=== PATIENT | male | born 1960 | race Caucasian/White ===

== ENCOUNTER 2016-11-08 09:51 | Emergency (ER) | payer SELFPAY ==
[2016-11-08 10:46] LABS: BASOPHILS 1.1 % (0.0-2.0); EOSINOPHILS 13.7 % (0-7); HEMATOCRIT 32.3 % (42.0-54.0); HEMOGLOBIN 10.7 g/dL (13.5-17.5); LYMPHOCYTES 18.1 % (15-50); MCH 29.2 pg (26.0-34.0); MCHC 33.1 g/dL (31.0-37.0); MEAN PLATELET VOLUME 9.1 fL (7.4-10.4); MONOCYTES 14.4 % (2-11); NEUTROPHILS 52.7 % (40-80); PLATELET COUNT 247 10x3/uL (130-400); RBC 3.67 10x6/uL (4.20-6.10); RDW 24.3 % (11.5-14.5); WBC 5.3 10x3/uL (4.8-10.8)
[2016-11-08 11:05] LABS: ALBUMIN 4.7 g/dL (3.4-5.0); ALKALINE PHOSPHATASE 80 U/L (46-116); ALT (SGPT) 116 U/L (10-68); BILIRUBIN - TOTAL 0.58 mg/dL (0.2-1.3); CALC OSMOLALITY 258 mosm/kg (275-300); CALCIUM 8.6 mg/dL (8.5-10.1); CARBON DIOXIDE 29.6 mmol/L (21.0-32.0); CHLORIDE - SERUM 92 mmol/L (98-107); CREATININE - SERUM 0.7 mg/dL (0.6-1.3); GLUCOSE 96 mg/dL (74-106); POTASSIUM - SERUM 3.9 mmol/L (3.5-5.1); PROTEIN - SERUM 8.4 g/dL (6.4-8.2); SODIUM 130 mmol/L (136-145); UREA NITROGEN 6 mg/dL (7-18); eGFR NON AFRICAN AMERICAN > 90 mL/min (90-120)
[2016-11-08 11:49] LABS: INR 4.33 (0.85-1.17); PROTIME 42.1 SECONDS (11.6-15.0)
[2016-11-08 11:50] LABS: APTT 61.1 SECONDS (22.8-39.4)
== END 2016-11-08 13:18 | disposition home or self-care (01) ==
LOC: D.ER 09:51
PROVIDERS: Emergency Medicine
DX: K92.2 Gastrointestinal hemorrhage, unspecified (principal); I10 Essential (primary) hypertension; Z79.01 Long term (current) use of anticoagulants; L42 Pityriasis rosea; Z91.14 Patient's other noncompliance with medication regimen; Z95.2 Presence of prosthetic heart valve; E87.1 Hypo-osmolality and hyponatremia

== ENCOUNTER 2017-07-29 16:30 | Inpatient (IN) | payer OTHER ==
[~2017-07-29] VITALS: Ht 175.3 cm; Wt 69.1 kg
--- NOTE | 2017-07-29 17:01 | NUR ---
SPOKE WITH DR. MCELROY CONCERNING CONSULT.
[2017-07-29] MEDS ORDERED: COUMADIN5 MG PO (17:10)
[2017-07-29] MEDS ORDERED: VALIUM10 MG PO (17:10)
[2017-07-29] MEDS ORDERED: COUMADIN7.5 MG PO (17:12)
[2017-07-29] MEDS ORDERED: ULTRAM50 MG PO (17:13)
[2017-07-29] MEDS ORDERED: XALATAN 0.0052.5 ML EACH EYE (17:13)
[2017-07-29] MEDS ORDERED: LOPRESSOR25 MG PO (17:15)
[2017-07-29] MEDS ORDERED: PROTONIX40 MG PO (17:15)
[2017-07-29] MEDS ORDERED: PRINIVIL20 MG PO (17:16)
[2017-07-29] MEDS ORDERED: FERROUS SULFAT325 MG PO (17:17)
[2017-07-29 17:18] LABS: HEMATOCRIT 26.6 % (42.0-54.0); HEMOGLOBIN 8.3 g/dL (13.5-17.5)
[2017-07-29] MEDS ORDERED: THEREMS-M1 TAB PO (17:22)
[2017-07-29] MEDS ORDERED: BAYER CHEWABLE81 MG PO (17:22)
[2017-07-29] MEDS ORDERED: NORVASC10 MG PO (17:22)
[2017-07-29 17:31] VITALS: BP 176/85; Ht 175.3 cm; Wt 69.1 kg
--- NOTE | 2017-07-29 18:45 | NUR ---
1640-RECIEVED VIA AMBULANCE-TO CV6-R IV SALINE LOCKED-PLACED TO MONITOR SR -DR MARQUES NOTIFIED OF ADMIT-ORDERS RECIEVED AND NOTED-PROTONIX GTT AT 8MG/H STARTED ORDERED-DR BENÍTEZ NOTIFIED OF CONSULT AND RETURNED [facility] 3057-DR BENÍTEZ AT [facility]- 1815-AMBULATING IN
[2017-07-29 19:00] VITALS: BP 157/89
--- NOTE | 2017-07-29 19:15 | NUR ---
SHIFT ASSESSMENT COMPLETED. SEE ASSESSMENT FLOWSHEET. WANTING TO KNOW HOW TO USE THE WIFI HERE. RT FA PIV W/ PROTONIX GTT @ 8MG/HR INFUSING WITHOUT ISSUES. REPORTS PAIN TO ABDOMEN, NECK AND BACK. ASKING ABOUT ULTRAM. WILL MONITOR.
[2017-07-29 20:00] VITALS: BP 152/86
--- NOTE | 2017-07-29 20:15 | NUR ---
PRN PAIN MED GIVEN FOR STOMACH AND NECK/BACK PAINS. TRAMADOL GIVEN-HOME MED. WILL MONITOR.
--- NOTE | 2017-07-29 20:15 | NUR ---
WARM BLANKET GIVEN FOR NOW UNTIL ENGINEERING CAN ADJUST ROOM TEMP HIGHER. SONG WRITER MADE AWARE OF NEED. WILL MONITOR.
--- NOTE | 2017-07-29 20:30 | NUR ---
ENGINEERING CALLED TO SEE WHAT TEMP NEEDS TO BE SET AT. WILL MONITOR.
[2017-07-29 21:00] VITALS: BP 156/84
[2017-07-29 22:00] VITALS: BP 119/62
--- NOTE | 2017-07-29 22:20 | NUR ---
EYES CLOSED. NO ACUTE DISTRESS NOTED. WILL MONITOR.
[2017-07-29 23:00] VITALS: BP 105/66
[2017-07-30] VITALS (19 sets, daily range): BP systolic 97–139; BP diastolic 61–90
--- NOTE | 2017-07-30 00:20 | NUR ---
AWOKEN FOR REASSESSMENT. NO NEW ACUTE CHANGES NOTED. REPORTS STOMACH IS FEELING BETTER. TEMP. ASSESSED AND 98.6 ORALLY. DENIES PAIN OR NEEDS. WILL MONITOR.
--- NOTE | 2017-07-30 01:14 | NUR ---
NEW BAG OF IV PROTONIX HUNG. EYES CLOSED. NO ACUTE DISTRESS NOTED. WILL MONITOR.
[2017-07-30 02:27] LABS: BASOPHILS 0.5 % (0-2); EOSINOPHILS 6.8 % (0-7); HEMATOCRIT 24.8 % (42.0-54.0); HEMOGLOBIN 7.7 g/dL (13.5-17.5); IMMATURE GRANULOCYTES 0.2 % (0-5); LYMPHOCYTES 26.7 % (15-50); MCH 25.6 pg (26.0-34.0); MCV 82.4 fL (80.0-100.0); MEAN PLATELET VOLUME 8.5 fL (7.4-10.4); MONOCYTES 16.5 % (2-11); NEUTROPHILS 49.3 % (40-80); PLATELET COUNT 293 10x3/uL (130-400); RBC 3.01 10x6/uL (4.20-6.10); RDW 20.3 % (11.5-14.5); WBC 4.4 10x3/uL (4.8-10.8)
[2017-07-30 02:39] LABS: APTT 44.5 SECONDS (22.8-39.4); INR 2.11 (0.85-1.17); PROTIME 23.7 SECONDS (11.6-15.0)
[2017-07-30 02:42] LABS: % SATURATION 3 % (15-55); IRON 15 ug/dl (35-150); TOTAL IRON BIND CAPACITY 393 ug/dl (260-445); UNSAT IRON BIND CAPACITY 378 ug/dl (150-375)
--- NOTE | 2017-07-30 02:44 | NUR ---
BACK TO BED FROM BATHROOM. REPORTS ONLY URINATING. DENIES PAIN OR NEEDS. RECONNECTED TO MONITORING DEVICES. WILL MONITOR.
[2017-07-30 02:55] LABS: CALC OSMOLALITY 263 mosm/kg (275-300); CALCIUM 8.5 mg/dL (8.5-10.1); CHLORIDE - SERUM 96 mmol/L (98-107); CREATININE - SERUM 0.6 mg/dL (0.6-1.3); FERRITIN 20 ng/mL (3-244); GLUCOSE 91 mg/dL (74-106); POTASSIUM - SERUM 3.7 mmol/L (3.5-5.1); SODIUM 132 mmol/L (136-145); UREA NITROGEN 11 mg/dL (7-18); eGFR NON AFRICAN AMERICAN > 90 mL/min (90-120)
--- NOTE | 2017-07-30 03:10 | NUR ---
DR. MCELROY MADE AWARE OF CURRENT H & H, AND COAG RESULTS. NEW ORDERS TO TRANSFUSE ONE UNIT OF PACKED RED BLOOD CELLS AND MAY HAVE A REGULAR DIET.
--- NOTE | 2017-07-30 03:50 | NUR ---
BLOOD TRANSFUSION CONSENT SIGNED BY PATIENT AFTER INFORMING OF NEED FOR 1 UNIT OF PACKED RED BLOOD CELLS. INFORMED LAB OF NEED FOR TYPE AND CROSS-SPOKE WITH SOCORRO.
--- NOTE | 2017-07-30 04:45 | NUR ---
GENEVA BRAVO AT BEDSIDE FOR TYPE AND CROSSMATCH AND BANDING ARM. EXPLAINED ANOTHER IV SITE IS NEEDED. IV TO LEFT WRIST 22G SUCCESSFUL AFTER 2 TOTAL ATTEMPTS. BLOOD DRAWN FOR TYPE AND CROSSMATCH. SALINE LOCKED NEW IV AT THIS TIME. METAL COLORED WATCH REMOVED BY PATIENT AND ON BEDSIDE TABLE. WILL MONITOR.
[2017-07-30 16:22] LABS: HEMATOCRIT 28.7 % (42.0-54.0); HEMOGLOBIN 9.2 g/dL (13.5-17.5)
--- NOTE | 2017-07-30 19:30 | NUR ---
REPORT RECIEVED. ASSESSMENT COMPLETED. SEE FLOW SHEET FOR DETAILS. TALKED WITH PT ABOUT BEING NPO PAST MIDNIGHT UNDERSTOOD. POSITIONED FOR COMFORT, WILL CONTINUE TO MONITOR.
--- NOTE | 2017-07-30 21:00 | NUR ---
HS MEDS VERFIED WITH MAR AND GIVEN. PT POSITONED FOR COMFORT WILL CONTINUE TO MONITOR.
[2017-07-30 22:55] LABS: HEMATOCRIT 27.8 % (42.0-54.0); HEMOGLOBIN 8.8 g/dL (13.5-17.5)
--- NOTE | 2017-07-30 23:00 | NUR ---
REASSESSMENT COMPLETED. NO ACUTE CHANGES. SEE FLOW SHEET FOR FURTHER DETAILS. PT POSITIONED FOR COMFORT WILL CONTINUE TO MONITOR PT.
[2017-07-31] VITALS (22 sets, daily range): BP systolic 91–158; BP diastolic 57–93
--- NOTE | 2017-07-31 01:00 | NUR ---
PT RESTING WITH NO SIGNS OF DISTRESS. WILL CONTINUE TO MONITOR.
--- NOTE | 2017-07-31 03:00 | NUR ---
REASSESSMENT COMPLETED AT THIS TIME. NO ACUTE CHANGES. SEE FLOW SHEET FOR FURTHER DETAILS. WILL CONTINUE TO MONITOR PT.
--- NOTE | 2017-07-31 05:00 | NUR ---
PT RESTING WITH NO SIGNS OF DISTRESS. WILL CONTINUE TO MONITOR.
[2017-07-31 05:17] LABS: HEMATOCRIT 27.6 % (42.0-54.0); HEMOGLOBIN 8.8 g/dL (13.5-17.5); MCH 27.2 pg (26.0-34.0); MCHC 31.9 g/dL (31.0-37.0); MEAN PLATELET VOLUME 9.3 fL (7.4-10.4); RBC 3.24 10x6/uL (4.20-6.10); RDW 19.9 % (11.5-14.5); WBC 4.6 10x3/uL (4.8-10.8)
[2017-07-31 05:19] LABS: MCV 85.2 fL (80.0-100.0)
[2017-07-31 05:24] LABS: INR 1.71 (0.85-1.17)
[2017-07-31 05:28] LABS: CALC OSMOLALITY 263 mosm/kg (275-300); CALCIUM 8.1 mg/dL (8.5-10.1); CARBON DIOXIDE 25.1 mmol/L (21.0-32.0); CHLORIDE - SERUM 97 mmol/L (98-107); CREATININE - SERUM 0.6 mg/dL (0.6-1.3); GLUCOSE 91 mg/dL (74-106); POTASSIUM - SERUM 3.5 mmol/L (3.5-5.1); SODIUM 133 mmol/L (136-145); eGFR NON AFRICAN AMERICAN > 90 mL/min (90-120)
[2017-07-31 05:44] LABS: UREA NITROGEN 6 mg/dL (7-18)
--- NOTE | 2017-07-31 09:58 | NUR ---
* Is the patient Alert and Oriented? Yes 0 * How many steps to enter\exit or inside your home? 3 0 * PCP Dr. Starr 0 * Pharmacy Tra on [address] 0 * Preadmission Environment Home with Family 0 * ADLs Independent 0 * Equipment Cane 0 * List name and contact numbers for known caregivers / representatives who currently or will assist patient after discharge: Son in law - Gonzalo Huang [phone] Brother - Branden Aaron [phone] 0 * Additional services required to return to the preadmission environment? No 0 * Can the patient safely return to the preadmission environment? Yes 0 * Has this patient been hospitalized within the prior 30 days at any hospital? No Patient Name: YOU AARON Admission Status: Elective Accout number: [id number] Admission Date: 07-29-2017 : 1960 Attending: FRANSICO MARQUES Current LOS: 2 Planned Disposition: Home Primary Insurance: [employer]ICA[employer] Discharge Planning Comments: CM met with patient to assess dc plans/needs. Patient states he lives with his daughter & son in law. He reports he is independent with all ADL's. He has a cane he uses PRN when his gout flares up. At dc, he plans to return home with his family. No needs identified or verbalized at this time. CM will follow & assist as needed. Cable Way Operator: Bessy Moulton
--- NOTE | 2017-07-31 11:09 | NUR ---
PATIENT UP TO BEDSIDE TO BATHE, PATIENT IS TOLERATING SITTING UP WELL. CALL LIGHT WITHIN REACH, BED IN LOW POSITION.
--- NOTE | 2017-07-31 16:33 | NUR ---
DR. STREETER HERE FINISHED EGD ON PATIENT, AND NEW ORDERS RECEIVED.
--- NOTE | 2017-07-31 16:39 | NUR ---
EGD WITH TIVA COMPLETED AT BEDSIDE IN CVICU.
--- NOTE | 2017-07-31 18:09 | NUR ---
REPORT CALLED TO [facility] PATIENT WILL BE GOING TO ROOM 2222.
--- NOTE | 2017-07-31 18:45 | NUR ---
PT TAKEN BY WHEELCHAIR TO 2222. ALL BELONGINGS WITH PT PER PT REPORT. NO S/S OF DISTRESS NOTED. PT PLACED BACK ON NS AT 75CC/HR TO LEFT WRIST PIV.
--- NOTE | 2017-07-31 18:50 | NUR ---
RECIEVED TO ROOM 2222 FROM ICU VIA . RESTING QUIETLY IN BED. DENIES ANY NEEDS AT THIS TIME.
--- NOTE | 2017-07-31 20:00 | NUR ---
ASSESSMENT PER FLOWSHEET. IV PATENT LEFT WRIST OF NS AT 75CC'S/HR SITE CLEAR. PT GETS UP AD MATTHIEU TO BR VOIDS FREELY.
--- NOTE | 2017-07-31 20:15 | NUR ---
C/O PAIN ALL OVER INCLUDING ABDOMEN. RATES PAIN LEVEL #5. ULTRAM 50 MG PO GIVEN FOR PAIN CONTROL.
--- NOTE | 2017-07-31 21:30 | NUR ---
MEDS GIVEN PER NOV. WAS NOTIFIED BY RT TECH FROM CVICU THAT BED BUGS WERE FOUND IN PT'S PREVIOUS BED THAT EVS WAS CLEANING. NOTIFIED ACCOUNTING ADVISORY SERVICES MANAGER TAMIA YOON AND PLACED PT IN CONTACT ISOLATION.
--- NOTE | 2017-08-01 | NUR ---
EYES CLOSED RESPIRATIONS WITH EASE AND UNLABORED.
--- NOTE | 2017-08-01 02:00 | NUR ---
RESTING QUIETLY DENIES NEEDS.
--- NOTE | 2017-08-01 04:53 | NUR ---
EYES CLOSED RESPIRATIONS WITH EASE AND UNLABORED.
[2017-08-01 06:13] LABS: BASOPHILS 0.5 % (0-2); EOSINOPHILS 6.8 % (0-7); HEMATOCRIT 28.2 % (42.0-54.0); HEMOGLOBIN 8.9 g/dL (13.5-17.5); IMMATURE GRANULOCYTES 0.3 % (0-5); LYMPHOCYTES 23.7 % (15-50); MCH 27.1 pg (26.0-34.0); MCHC 31.6 g/dL (31.0-37.0); MCV 85.7 fL (80.0-100.0); MEAN PLATELET VOLUME 9.1 fL (7.4-10.4); NEUTROPHILS 53.7 % (40-80); PLATELET COUNT 267 10x3/uL (130-400); RBC 3.29 10x6/uL (4.20-6.10); RDW 19.7 % (11.5-14.5); WBC 3.8 10x3/uL (4.8-10.8)
[2017-08-01 06:19] LABS: INR 1.49 (0.85-1.17); PROTIME 17.9 SECONDS (11.6-15.0)
[2017-08-01 06:48] LABS: ALBUMIN 3.5 g/dL (3.4-5.0); ALKALINE PHOSPHATASE 72 U/L (46-116); ALT (SGPT) 58 U/L (10-68); BILIRUBIN - TOTAL 0.67 mg/dL (0.2-1.3); CALC OSMOLALITY 266 mosm/kg (275-300); CALCIUM 8.1 mg/dL (8.5-10.1); CARBON DIOXIDE 26.2 mmol/L (21.0-32.0); CHLORIDE - SERUM 101 mmol/L (98-107); CREATININE - SERUM 0.5 mg/dL (0.6-1.3); GLUCOSE 92 mg/dL (74-106); POTASSIUM - SERUM 3.4 mmol/L (3.5-5.1); PROTEIN - SERUM 7.1 g/dL (6.4-8.2); SODIUM 135 mmol/L (136-145); UREA NITROGEN 5 mg/dL (7-18); eGFR NON AFRICAN AMERICAN > 90 mL/min (90-120)
--- NOTE | 2017-08-01 07:30 | NUR ---
ASSESSMENT COMPLETE. IV TO L WRIST PATENT. NS INFUSING AT 75 CC/HR VIA PUMP. NPO FOR CTA TODAY. PATIENT STATES HE HAS NEVER HAD BUG BITES. NO BUG BITES NOTED AFTER ASSESSING SKIN. DENIES ANY NEEDS AT THIS TIME.
--- NOTE | 2017-08-01 07:40 | NUR ---
20 GUAGE SITED TO L FA X 2 ATTEMPTS FOR CTA TODAY.
[2017-08-01 08:40] VITALS: BP 149/79
--- NOTE | 2017-08-01 11:00 | NUR ---
NO CHANGES NOTED AT THIS TIME.
[2017-08-01 12:45] VITALS: BP 148/79
--- NOTE | 2017-08-01 14:00 | NUR ---
UP AD MATTHIEU IN ROOM. DENIES ANY NEEDS AT THIS TIME.
--- NOTE | 2017-08-01 18:30 | NUR ---
NO CHANGES NOTED AT PRESENT.
[2017-08-01 19:30] VITALS: BP 142/78
--- NOTE | 2017-08-01 21:35 | NUR ---
PATIENT RESTING IN BED AND DENIES NEEDS AT THIS TIME. ADMINISTERED MEDS PER ORDERS. COMPLETED ASSESSMENT. BED IN LOWEST POSITION AND CALL LIGHT WITHIN REACH. ENCOURAGED THE PATIENT TO CALL IF HE HAS NEEDS.
[2017-08-01 23:30] VITALS: BP 135/78
[2017-08-02 04:59] VITALS: BP 139/76
[2017-08-02 06:08] LABS: BASOPHILS 0.7 % (0-2); EOSINOPHILS 6.5 % (0-7); HEMATOCRIT 28.1 % (42.0-54.0); HEMOGLOBIN 8.8 g/dL (13.5-17.5); IMMATURE GRANULOCYTES 0.2 % (0-5); LYMPHOCYTES 19.5 % (15-50); MCHC 31.3 g/dL (31.0-37.0); MCV 86.2 fL (80.0-100.0); MEAN PLATELET VOLUME 9.6 fL (7.4-10.4); MONOCYTES 15.5 % (2-11); NEUTROPHILS 57.6 % (40-80); PLATELET COUNT 273 10x3/uL (130-400); RBC 3.26 10x6/uL (4.20-6.10); RDW 19.5 % (11.5-14.5); WBC 4.3 10x3/uL (4.8-10.8)
[2017-08-02 06:20] LABS: INR 1.46 (0.85-1.17); PROTIME 17.7 SECONDS (11.6-15.0)
[2017-08-02 06:32] LABS: CALC OSMOLALITY 261 mosm/kg (275-300); CALCIUM 8.2 mg/dL (8.5-10.1); CARBON DIOXIDE 25.9 mmol/L (21.0-32.0); CHLORIDE - SERUM 99 mmol/L (98-107); CREATININE - SERUM 0.6 mg/dL (0.6-1.3); GLUCOSE 92 mg/dL (74-106); POTASSIUM - SERUM 3.5 mmol/L (3.5-5.1); SODIUM 132 mmol/L (136-145); UREA NITROGEN 4 mg/dL (7-18); eGFR NON AFRICAN AMERICAN > 90 mL/min (90-120)
--- NOTE | 2017-08-02 08:30 | NUR ---
ASSESSMENT COMPLETED PER FLOW SHEET. IV PATENT. PATIENT DENIES ANY NEEDS AT THIS TIME. WILL CONTINUE TO MONITOR.
[2017-08-02 12:09] VITALS: BP 141/84
[2017-08-02 16:16] VITALS: BP 136/74
--- NOTE | 2017-08-02 20:00 | NUR ---
ASSESSMSENT PER FLOWHEET. IV PATENT LEFT WRIST OF NS AT 75CC'S/HR. SALINE LOCK PATENT LEFT FOREARM SITES X2 CLEAR. SR UP X2 CALL LIGHT WITHIN REACH DENIES NEEDS.
--- NOTE | 2017-08-02 21:15 | NUR ---
MEDS GIVEN PER MAR.
[2017-08-02 21:51] VITALS: BP 142/85
[2017-08-02 23:45] VITALS: BP 134/71
--- NOTE | 2017-08-03 01:00 | NUR ---
EYES CLOSED RESPIRATIONS WITH EASE AND UNLABORED.
[2017-08-03 04:00] VITALS: BP 133/80
[2017-08-03 05:44] LABS: BASOPHILS 0.8 % (0-2); EOSINOPHILS 6.5 % (0-7); HEMOGLOBIN 8.5 g/dL (13.5-17.5); IMMATURE GRANULOCYTES 0.3 % (0-5); LYMPHOCYTES 31.7 % (15-50); MCH 26.7 pg (26.0-34.0); MCHC 31.5 g/dL (31.0-37.0); MCV 84.9 fL (80.0-100.0); MONOCYTES 19.4 % (2-11); NEUTROPHILS 41.3 % (40-80); PLATELET COUNT 281 10x3/uL (130-400); RBC 3.18 10x6/uL (4.20-6.10); RDW 19.6 % (11.5-14.5); WBC 3.8 10x3/uL (4.8-10.8)
[2017-08-03 05:57] LABS: INR 1.5 (0.85-1.17); PROTIME 17.6 SECONDS (11.6-15.0)
[2017-08-03 06:09] LABS: ALBUMIN 3.4 g/dL (3.4-5.0); ALKALINE PHOSPHATASE 70 U/L (46-116); ALT (SGPT) 56 U/L (10-68); BILIRUBIN - TOTAL 0.35 mg/dL (0.2-1.3); CALC OSMOLALITY 265 mosm/kg (275-300); CALCIUM 8.3 mg/dL (8.5-10.1); CARBON DIOXIDE 25.4 mmol/L (21.0-32.0); CHLORIDE - SERUM 100 mmol/L (98-107); CREATININE - SERUM 0.6 mg/dL (0.6-1.3); GLUCOSE 91 mg/dL (74-106); POTASSIUM - SERUM 3.2 mmol/L (3.5-5.1); PROTEIN - SERUM 7.2 g/dL (6.4-8.2); SODIUM 134 mmol/L (136-145); eGFR NON AFRICAN AMERICAN > 90 mL/min (90-120)
[2017-08-03 06:15] LABS: UREA NITROGEN 6 mg/dL (7-18)
--- NOTE | 2017-08-03 06:35 | NUR ---
P+ LEVEL=3.2. K DUR 40MEQ PO GIVEN PER E. PROTOCAL.
--- NOTE | 2017-08-03 08:28 | NUR ---
PT AOX4 RESP EVEN AND NONLABORED PT DENIES NEEDS AT THIS TIME IV TO LEFT WRIST PATENT AND INTACT AT THIS TIME SRX2 BED AT LOWEST SETTING CALL LIGHT WITHIN REACH WILL CONTINUE TO MONITOR
[2017-08-03 08:37] VITALS: BP 144/83
--- NOTE | 2017-08-03 09:54 | NUR ---
CM REASSESSMENT NOTE: PATIENT IS DISCHARGING HOME TODAY/DRIVING HIMSELF/ DENIED NEEDS FOR HOME HEALTH / STATED HE HAD NO OTHER NEEDS FOR DISCHARGE. CM EXPLAINED TO NURSE PATIENT WAS DRIVING HIMSELF HOME.
--- NOTE | 2017-08-03 11:36 | NUR ---
IV X2 DISCONTINUED WITH CATHETER INTACT AT THIS TIME PT GIVEN DISCHARGE INSTRUCTIONS AT THIS TIME TAKEN TAKEN VIA WHEELCHAIR VIA PRIVATE VEHICLE AT THIS TIME
== END 2017-08-03 11:38 | disposition home or self-care (01) | DRG 379 ==
LOC: D.MS 16:30 → D.CVICU 16:30 → D.MS 07-31 18:29
PROVIDERS: Internal Medicine Gastroenterology; ADMIT Family Medicine
PROC: 0DJ08ZZ Inspection of Upper Intestinal Tract, Via Natural or Artificial Opening Endoscopic (ICD-10-PCS; principal; 2017-07-31 15:00)
DX: K92.1 Melena (principal); K57.90 Diverticulosis of intestine, part unspecified, without perforation or abscess without bleeding; D50.9 Iron deficiency anemia, unspecified; K29.90 Gastroduodenitis, unspecified, without bleeding; K44.9 Diaphragmatic hernia without obstruction or gangrene; K29.70 Gastritis, unspecified, without bleeding; D18.03 Hemangioma of intra-abdominal structures; Z95.2 Presence of prosthetic heart valve; Z79.01 Long term (current) use of anticoagulants; I10 Essential (primary) hypertension

== ENCOUNTER 2017-10-06 13:36 | Inpatient (IN) | payer OTHER ==
[~2017-10-06] VITALS: Ht 175.3 cm; Wt 77.1 kg
--- NOTE | ~2017-10-06 | HP ---
PATIENT: YOU AARON MEDICAL RECORD: [id number] ACCOUNT: [id number] LOCATION:D.[facility] : [birth year] ADMISSION DATE: 10/06/17 HISTORY AND PHYSICAL EXAMINATION REASON FOR ADMISSION: Rectal bleeding and mild abdominal pain. HISTORY OF PRESENT ILLNESS: The patient is a 57-year-old male, patient of Dr. Gilbert Harry and Dr. Sarika Webster. He has history of diverticulosis and diverticular bleed in 07/21/2017. He was on Coumadin because of a prosthetic aortic valve. He had an EGD at that time that showed some gastritis, but no obvious other source of bleeding. The patient said for that last 3 days he has had some dark stools that are fairly loose and somewhat bright red blood. He had some vague abdominal pain, not severe, not fever. He delayed coming into the hospital, he did not want to come in, but came today because of increasing symptoms and feeling fatigued. He denies any vomiting, but did have some nausea. Denies fever. PAST MEDICAL HISTORY: Aortic stenosis, aortic valve replacement, prosthetic type; history of GI bleed times 2 in the past; history of liver hemangioma; gout; hyperlipidemia; essential hypertension; glaucoma; anemia; gastrointestinal blood loss. PAST SURGICAL HISTORY: He states he has had an appendectomy in the past, aortic valve replacement. FAMILY HISTORY: Mother of Alzheimer's dementia. Father of coronary artery disease at age 80. SOCIAL HISTORY: Nonsmoker, nondrinker. Does have an occasional beer. MEDICATIONS: Coumadin 5 mg daily, except 7.5 mg on Monday and ; amlodipine 10 mg daily; Valium 10 mg b.i.d. p.r.n. anxiety; Lisinopril 10 mg b.i.d.; Feosol 1 daily; Latanoprost eyedrops 1 drop both eyes daily; multivitamins 1 daily; Protonix 40 mg daily; tramadol p.r.n. pain. ALLERGIES: None mentioned. REVIEW OF SYSTEMS: GENERAL: He has been fatigued for the last 24 hours. Denies fever. HEENT: No recent new visual change, sinus congestion, or sore throat. RESPIRATORY: No SOB, cough or hemoptysis. CARDIAC: No chest pain or palpitations. GASTROINTESTINAL: He has had nausea with some vomiting. He has had dark stools as mentioned for the last 3 days, some bright red blood has been noted as well. ENDOCRINE: Denies polyuria, polydipsia, heat or cold intolerance. NEUROLOGIC: Denies headache, visual changes or seizures, or memory loss. PSYCHIATRIC: Denies depressed mood. GENITOURINARY: Nocturia once nightly. INTEGUMENT: No rash, itching, petechiae or easy bruisability. PHYSICAL EXAMINATION: VITAL SIGNS: Temperature is 98.1 Fahrenheit orally, pulse 80 and regular, respirations are 20, blood pressure 152/90 with a sat 99% on room air. HEENT: Head is normocephalic. Eyes are clear with pinpoint pupils. HISTORY AND PHYSICAL [id number] GALEN[place] Conjunctiva is pink. NECK: No bruits or masses. CHEST: Clear without wheeze or rales. HEART: Regular rate with a mechanical aortic valve murmur noted. ABDOMEN: Soft, minimally tender perianal, likely has had a small umbilical hernia. Bowel sounds are hyperactive. RECTAL: Heme-positive stool that is black. EXTREMITIES: No CC&E. NEUROLOGICAL: Oriented to person, place, and time. Cranial nerves grossly intact. Gait was not tested. LABORATORY AND DIAGNOSTIC DATA: Hemoglobin was 10.5. Abdominal series shows lots of air throughout the colon, but no evidence of obstruction [place]. [place] [address], H&H is 10.6 and 31.1, platelets 169,000, neutrophils are 86.8, lymphocytes 6700. His INR is 2.76. Sodium is low at 124. BUN and creatinine are 24 and 0.8, potassium 4.6, glucose 108. Urinalysis unremarkable except for trace glucose. ASSESSMENT: 1. Rectal bleeding, possibly diverticular. 2. Coagulopathy from Coumadin therapy for aortic valve replacement. 3. Anemia, minimally symptomatic. 4. Essential hypertension. 5. Aortic valve replacement for aortic stenosis. 6. History of gastritis. 7. Glaucoma. 8. Umbilical hernia, asymptomatic. 9. Anxiety. PLAN: The patient will be admitted, holding Coumadin at this time. Transfuse if indicated. GI consult with Dr. Pineda. Empiric antibiotics, IV currently. TRANSINT:[id number] Voice Confirmation ID: [id number] DOCUMENT ID: [id number] RICHARD SILVERMAN MD at 2129 CC: [id number] DICTATION DATE: 10/06/171823 ENGINE ASSEMBLER: 10/06/172118 ADM IN [place] [id number] [place] [id number]
--- NOTE | ~2017-10-06 | HEMODYNAMI ---
PATIENT:YOU AARON MEDICAL RECORD: [id number] : 58 LOCATION:D.MS [facility].2212 ADMISSION DATE: 10/06/17 Generatedon:10/10/201710:00 Patient name: YOU AARON Patient #: [id number] SSN: : 1960 Date of study: 10/10/2017 Page: Of Hemodynamic Procedure Report Patient Data Patient Demographics Procedure consent was obtained First Name: YOU Gender: Male Last Name: GALEN : 1960 Middle Initial: REENA Age: 57 year(s) Patient #: [id number] Race: Unknown Additional ID: [id number] Contact details [address]: [address] [place] [address] [place] State: [place] City: [place] Zip code: [address] Admission Admission Data Admission Date: 10/06/2017 Admission Time: 19:30 Room #: D.2212 Procedure Procedure Types Cath Procedure Peripheral Cath Diagnostic Procedure Abd/Extremity Visceral/Mesenteric Mesenteric Arteriogram (Abd Artery) Procedure Description Procedure Date Procedure Date: 10/10/2017 Procedure Start Time: 9:18 Procedure Staff Name Function David Byrd MD Performing Physician Keenan Power RT Monitor Piedad Barajas RT Scrub Shine Rousseau RN Nurse Procedure Data Cath Procedure Fluoroscopy Diagnostic fluoroscopy Total fluoroscopy Time: 4.6 time: 4.6 min min Diagnostic fluoroscopy Total fluoroscopy dose: 642 dose: 642 mGy mGy Contrast Material Contrast Material Type Amount (ml) Isovue 300 75 Entry Location Entry Primary Successful Side Size Upsize Upsize Entry Closure Succes sful Closure Location (Fr) 1 (Fr) 2 (Fr) Remarks Device Remarks Femoral Right 5 Fr Exoseal artery Diagnostic catheters Device Type Used For End Catheter Placement Cook CHG-B 5FR 65CM Visceral catheter ([id number]) arteriography without flush-selective Angiodynamics SOS OMNI 2 Visceral NON B 5FR 65CM catheter arteriography ([id number]) without flush-selective Procedure Medications Medication Administration Route Dosage Lidocaine 1% added to field Heparin Flush Bag added to field 2 bags (1000units/500ml NS) Heparin Flush Bag added to field 1 bags (1000units/500ml NS) Versed I.V. 1 mg Fentanyl I.V. 50 mcg Versed I.V. 1 mg Fentanyl I.V. 50 mcg Hemodynamics Rest Heart Rate: 68 (bpm) Snapshots Pre Cath Intra NCS Post Cath Vital Signs Time Heart Resp SPO2 etCO2 NIBP (mmHg) Rhythm Pain Sedation Rate (ipm) (%) (mmHg) Status Level (bpm) 9:00:58 66 16 97 30.2 161/84(134) NSR 0 (11) 10(A) , No pain 9:05:16 68 16 96 30.2 156/86(132) NSR 0 (11) 10(A) , No pain 9:09:30 68 15 96 30.9 151/88(132) NSR 0 (11) 10(A) , No pain 9:13:42 69 15 96 30.9 157/89(133) NSR 0 (11) 10(A) , No pain 9:17:56 70 16 96 31.7 154/89(132) NSR 0 (11) 10(A) , No pain 9:22:12 67 17 95 30.9 132/82(114) NSR 0 (11) 10(A) , No pain 9:26:20 66 8 100 33.9 134/80(118) NSR 0 (11) 10(A) , No pain 9:30:30 66 13 98 33.9 140/82(121) NSR 0 (11) 10(A) , No pain 9:34:40 69 12 99 32.4 145/85(124) NSR 0 (11) 10(A) , No pain 9:38:52 66 13 98 32.4 150/85(125) NSR 0 (11) 10(A) , No pain 9:43:08 70 17 99 32.4 132/81(113) NSR 0 (11) 10(A) , No pain 9:47:13 77 18 98 30.2 144/87(122) NSR 0 (11) 10(A) , No pain 9:51:27 71 14 97 32.4 130/81(107) NSR 0 (11) 10(A) , No pain 9:55:33 70 13 98 33.2 131/86(114) NSR 0 (11) 10(A) , No pain 9:59:41 68 16 100 31.7 137/82(116) NSR 0 (11) 10(A) , No pain Medications Time Medication Route Dose Verified Delivered Reason Notes Effecti veness by by 9:04:03 Lidocaine 1% added to field 9:04:12 Heparin Flush added 2 Bag to bags (1000units/500ml field NS) 9:04:16 Heparin Flush added 1 Bag to bags (1000units/500ml field NS) 9:19:47 Versed I.V. 1 mg David Shine for Byrd Onelia RN sedation 9:19:57 Fentanyl I.V. 50 David Shine for mcg Byrd Onelia RN sedation 9:40:15 Versed I.V. 1 mg David Shine for Byrd Onelia RN sedation 9:40:26 Fentanyl I.V. 50 David Shine for mcg Byrd Onelia RN sedation Procedure Log Time Note 8:43:04 Piedad Barajas RT (R) (CV) sent for patient. Start room use. 8:43:15 Time tracking: Regular hours 8:43:20 Plan of Care:Hemodynamics will remain stable., Cardiac rhythm will remain stable., Comfort level will be maintained., Respiratory function will remain adequate., Patient/ family verbilizes understanding of procedure., Procedure tolerated without complication., Recovers from procedure without complications.. 8:43:25 Patient received from Med/Surg to IR Alert and oriented. Tansferred to table in Supine position. 8:43:26 Correct patient and procedure confirmed by team. 8:43:28 Signed procedure consent form obtained from patient. 8:43:29 ECG and BP/O2 sat monitors applied to patient. 8:43:31 Full Disclosure recording started 8:43:31 - 8:43:34 H&P Date Dictated: 10/10/2017 Within 30 days and on chart.. 8:43:35 Pre-procedure instructions explained to patient. 8:43:36 Pre-op teaching completed and patient verbalized understanding. 8:43:38 Family unavailable. 8:43:40 Patient NPO since Midnight. 8:43:45 Is the patient allergic to Iodine/contrast media? No. 8:43:47 Is patient on blood thinner?No 8:43:49 Patient diabetic? No. 8:43:54 Use device set IR Diagnostic 8:43:56 ACIST Syringe (25504) opened to sterile field. 8:43:56 ACIST Hand Control (58779) opened to sterile field. 8:43:56 ACIST Manifold (16888) opened to sterile field. 8:43:57 Bag Decanter (2002) opened to sterile field. 8:43:57 Sterile Angiographic Pack opened to sterile field. 8:44:04 ----Pre-sedation anethsthesia assessment.---- 8:44:07 Snore? Yes 8:44:09 Sleep apnea? No 8:44:10 Deviated septum? No 8:44:11 Opens mouth fully? Yes 8:44:12 Sticks out tongue? Yes 8:44:14 Airway obstruction? No ? 8:44:16 Dentures? No ? 8:44:17 - 8:52:23 Pre procedure: right dorsailis pedis pulse Doppler 8:52:27 Pre procedure: right posterior tibial pulse Doppler 8:52:30 Sharps counted by scrub and verified by Meg 8:52:31 Alarms reviewed by Dimas Bruno 8:52:37 Right groin area was prepped with chlora-prep and draped in sterile fashion 8:56:19 Patient pain scale 0/10 no pain. 8:56:32 IV patent on arrival in right forearm with 0.9% NaCl at KVO. 8:59:46 Vital chart was started 8:59:47 Baseline sample Acquired. 9:04:03 Lidocaine 1% added to field was administered by ; ; 9:04:12 Heparin Flush Bag (1000units/500ml NS) 2 bags added to field was administered by ; ; 9:04:16 Heparin Flush Bag (1000units/500ml NS) 1 bags added to field was administered by ; ; 9:17:11 --------ALL STOP TIME OUT------ 9:17:12 Final Timeout: patient, procedure, and site verified with staff and physician. All members of the team are in agreement. 9:17:14 Right groin site verified by team. 9:17:18 Sedation plan: IV Moderate Sedation Medication:Versed, Fentanyl 9:18:43 Procedure started. 9:18:46 Local anesthetic to right femoral artery with Lidocaine 1% by David Byrd MD.INITIAL ACCESS ONLY 9:19:05 A 5 Fr sheath was inserted into the Right Femoral artery 9:19:09 DOC .035 wire (D57696) opened to sterile field. 9:19:09 PERCUTANEOUS ENTRY 19GA needle opened to sterile field. 9:19:10 SHEATH 5FR [place] (DPH212) opened to sterile field. 9:19:35 A PingThings CHG-B 5FR 65CM catheter (F63265) was advanced over the wire and used for Visceral arteriography without flush-selective. 9:19:45 TUBING Contrast Injection High Pressure (BBV872S) opened to sterile field. 9:19:47 Versed 1 mg I.V. was administered by Shine Rousseau RN; for sedation; 9:19:57 Fentanyl 50 mcg I.V. was administered by Shine Rousseau RN; for sedation ; 9:30:13 A AngiodynamVivotech OMNI 2 NON B 5FR 65CM catheter ([id number]) was advanced over the wire and used for Visceral arteriography without flush-selective. 9:40:15 Versed 1 mg I.V. was administered by Shine Rousseau RN; for sedation; 9:40:26 Fentanyl 50 mcg I.V. was administered by Shine Rousseau RN; for sedation ; 9:40:32 ANGIOSEAL-VIP PLUS 6 FR opened to sterile field. 9:44:08 Procedure ended.(Physican Out) 9:49:25 Fluoroscopy time 04.60 minutes. 9:49:31 Fluoroscopy dose: 642 mGy 9:49:31 Flurop Dose total: 642 9:49:49 Sheath removed intact; hemostasis achieved with Exoseal to the Right Femoral artery. 9:50:00 Insertion/operative site no bleeding no hematoma. 9:50:03 Post-op/insertion site Right Femoral artery dressed using a 4 x 4 and Tegaderm. 9:50:06 Post right femoral artery:stable 9:50:09 Post Procedure Pulses reassessed and unchanged 9:50:12 Post procedure instruction explained to patient.Patient verbalizes understanding. 9:50:13 Procedure and supply charges have been captured, reviewed, submitted an d are correct. 9:52:53 Contrast amount:Isovue 300 75ml. 9:59:37 Report given to Med/Surg. 9:59:41 Patient transfered to Med/Surg with Bed. 10:00:12 Vital chart was stopped Device Usage Item Name Manufacture Quantity Catalog Hospital Part Current Minim al Lot# / Number Charge Number Stock Stock Serial# Code ACIST Syringe Acist Medical 1 85263 385768 649955 290307 20 (37386) Systems Inc ACIST Hand Acist Medical 1 60836 576209 756483 209102 5 Control Systems Inc (36679) ACIST Acist Medical 1 85328 233738 386519 999075 5 Manifold Systems Inc (38618) Bag Decanter Microtek 1 2001S 543629 14128 015354 5 (2001S) Medical Inc. Sterile Cardinal 1 [id number] 948238 864231 5 Angiographic Health Pack DOC .035 wire Cook Medical 1 V44177 933963 466932 5 [id number] ([id number]) PERCUTANEOUS Cook Medical 1 J51127 953976 358125 5 [id number] ENTRY 19GA needle SHEATH 5FR Terumo 1 DRL154 985138 057486 013285 40 [place] (OSW702) Cook CHG-B Cook Medical 1 F86356 910479 673223 107351 5 5FR 65CM catheter (D83302) TUBING [facility] Medical 1 [id number] 324426 771443 453705 5 Contrast Injection High Pressure ([id number]) Angiodynamics Angiodynamics 1 [id number] 011545 28490 531120 5 SOS OMNI 2 NON B 5FR 65CM catheter ([id number]) ANGIOSEAL-VIP [facility] 1 707764 242770 443293 5 1970296 PLUS 6 FR Signature Audit [place] Stage Time Signature Unsigned Intra-Procedure 10/10/2017 Keenan 10:00:09 AM Jannet RT (R) (CV) Signatures Monitor : Keenan Signature : Jannet RT Date : Time : [facility] [address] [address]
[~2017-10-06 13:36] MED LIST: BAYER CHEWABLE81 MG PO; COUMADIN5 MG PO; COUMADIN7.5 MG PO; FERROUS SULFAT325 MG PO; LOPRESSOR25 MG PO; NORVASC10 MG PO; PRINIVIL20 MG PO; PROTONIX40 MG PO; THEREMS-M1 TAB PO; ULTRAM50 MG PO; VALIUM10 MG PO; XALATAN 0.0052.5 ML EACH EYE
[2017-10-06 16:04] LABS: BASOPHILS 0.1 % (0-2); EOSINOPHILS 0 % (0-7); HEMATOCRIT 31.1 % (42.0-54.0); HEMOGLOBIN 10.6 g/dL (13.5-17.5); IMMATURE GRANULOCYTES 0.3 % (0-5); LYMPHOCYTES 6.7 % (15-50); MCH 31.3 pg (26.0-34.0); MCHC 34.1 g/dL (31.0-37.0); MCV 91.7 fL (80.0-100.0); MEAN PLATELET VOLUME 9.9 fL (7.4-10.4); MONOCYTES 6.1 % (2-11); NEUTROPHILS 86.8 % (40-80); RBC 3.39 10x6/uL (4.20-6.10); RDW 18.8 % (11.5-14.5); WBC 13.7 10x3/uL (4.8-10.8)
[2017-10-06 16:05] LABS: PLATELET COUNT 169 10x3/uL (130-400)
[2017-10-06 16:13] LABS: CALC OSMOLALITY 254 mosm/kg (275-300); CARBON DIOXIDE 30.6 mmol/L (21.0-32.0); CHLORIDE - SERUM 89 mmol/L (98-107); CREATININE - SERUM 0.8 mg/dL (0.6-1.3); GLUCOSE 108 mg/dL (74-106); INR 2.76 (0.85-1.17); POTASSIUM - SERUM 4.6 mmol/L (3.5-5.1); PROTIME 28.4 SECONDS (11.6-15.0); SODIUM 124 mmol/L (136-145); UREA NITROGEN 24 mg/dL (7-18); eGFR NON AFRICAN AMERICAN > 90 mL/min (90-120)
[2017-10-06 17:40] LABS: APPEARANCE CLEAR (CLEAR); BILIRUBIN NEGATIVE (NEGATIVE); COLOR YELLOW (YELLOW); GLUCOSE 50 mg/dL (NEGATIVE); KETONE NEGATIVE (NEGATIVE); NITRITE NEGATIVE (NEGATIVE); PROTEIN NEGATIVE (NEGATIVE); UROBILINOGEN NORMAL (NORMAL)
[2017-10-06 20:00] VITALS: BP 129/69
[2017-10-06 20:47] VITALS: BP 129/69; BMI 25.1
[2017-10-07] VITALS (7 sets, daily range): BP systolic 98–151; BP diastolic 57–79; Ht 175.3 cm; Wt 77.1 kg
[2017-10-07 06:29] LABS: INR 2.61 (0.85-1.17); PROTIME 27.2 SECONDS (11.6-15.0)
[2017-10-07 06:31] LABS: HEMATOCRIT 26.4 % (42.0-54.0); HEMOGLOBIN 8.8 g/dL (13.5-17.5); LYMPHOCYTES 20.6 % (15-50); MCH 30.8 pg (26.0-34.0); MCHC 33.3 g/dL (31.0-37.0); MCV 92.3 fL (80.0-100.0); MEAN PLATELET VOLUME 9.8 fL (7.4-10.4); NEUTROPHILS 60.1 % (40-80); PLATELET COUNT 136 10x3/uL (130-400); RBC 2.86 10x6/uL (4.20-6.10); RDW 19.3 % (11.5-14.5)
[2017-10-07 06:43] LABS: ALBUMIN 3.8 g/dL (3.4-5.0); ALKALINE PHOSPHATASE 73 U/L (46-116); ALT (SGPT) 33 U/L (10-68); BILIRUBIN - TOTAL 0.67 mg/dL (0.2-1.3); CALC OSMOLALITY 259 mosm/kg (275-300); CALCIUM 8.2 mg/dL (8.5-10.1); CARBON DIOXIDE 25.9 mmol/L (21.0-32.0); CHLORIDE - SERUM 93 mmol/L (98-107); CREATININE - SERUM 0.8 mg/dL (0.6-1.3); GLUCOSE 94 mg/dL (74-106); PROTEIN - SERUM 6.7 g/dL (6.4-8.2); SODIUM 128 mmol/L (136-145); UREA NITROGEN 20 mg/dL (7-18); eGFR NON AFRICAN AMERICAN > 90 mL/min (90-120)
[2017-10-07 15:09] LABS: HEMATOCRIT 28.3 % (42.0-54.0); HEMOGLOBIN 9.4 g/dL (13.5-17.5); MCH 31.3 pg (26.0-34.0); MCHC 33.2 g/dL (31.0-37.0); RDW 18.6 % (11.5-14.5); WBC 4.5 10x3/uL (4.8-10.8)
[2017-10-07 15:12] LABS: MCV 94.3 fL (80.0-100.0)
[2017-10-08 04:00] VITALS: BP 120/71
[2017-10-08 04:58] LABS: BASOPHILS 0.5 % (0-2); EOSINOPHILS 2.8 % (0-7); HEMATOCRIT 26.1 % (42.0-54.0); HEMOGLOBIN 8.7 g/dL (13.5-17.5); IMMATURE GRANULOCYTES 0.2 % (0-5); LYMPHOCYTES 19.6 % (15-50); MCH 31.1 pg (26.0-34.0); MCHC 33.3 g/dL (31.0-37.0); MCV 93.2 fL (80.0-100.0); MEAN PLATELET VOLUME 10.1 fL (7.4-10.4); MONOCYTES 13.2 % (2-11); NEUTROPHILS 63.7 % (40-80); PLATELET COUNT 159 10x3/uL (130-400); RDW 18.7 % (11.5-14.5); WBC 4.2 10x3/uL (4.8-10.8)
[2017-10-08 05:12] LABS: CALC OSMOLALITY 260 mosm/kg (275-300); CALCIUM 8.3 mg/dL (8.5-10.1); CARBON DIOXIDE 24.9 mmol/L (21.0-32.0); CHLORIDE - SERUM 97 mmol/L (98-107); CREATININE - SERUM 0.7 mg/dL (0.6-1.3); GLUCOSE 94 mg/dL (74-106); POTASSIUM - SERUM 3.5 mmol/L (3.5-5.1); SODIUM 131 mmol/L (136-145); eGFR NON AFRICAN AMERICAN > 90 mL/min (90-120)
[2017-10-08 05:14] LABS: UREA NITROGEN 8 mg/dL (7-18)
[2017-10-08 09:14] VITALS: BP 140/83
[2017-10-08 13:54] VITALS: BP 128/72
[2017-10-08 15:37] LABS: HEMATOCRIT 27.7 % (42.0-54.0); HEMOGLOBIN 9.3 g/dL (13.5-17.5); MCH 31.1 pg (26.0-34.0); MCHC 33.6 g/dL (31.0-37.0); MCV 92.6 fL (80.0-100.0); MEAN PLATELET VOLUME 9.9 fL (7.4-10.4); RBC 2.99 10x6/uL (4.20-6.10); RDW 18.2 % (11.5-14.5); WBC 7.3 10x3/uL (4.8-10.8)
[2017-10-08 16:25] VITALS: BP 141/79
[2017-10-08 20:41] VITALS: BP 149/79
[2017-10-09] VITALS: BP 121/72
[2017-10-09 04:00] VITALS: BP 133/77
[2017-10-09 05:47] LABS: BASOPHILS 0.2 % (0-2); EOSINOPHILS 3.5 % (0-7); HEMATOCRIT 27.9 % (42.0-54.0); HEMOGLOBIN 9.3 g/dL (13.5-17.5); LYMPHOCYTES 17.3 % (15-50); MCH 31.4 pg (26.0-34.0); MCHC 33.3 g/dL (31.0-37.0); MCV 94.3 fL (80.0-100.0); MONOCYTES 15.9 % (2-11); NEUTROPHILS 63.1 % (40-80); PLATELET COUNT 177 10x3/uL (130-400); RBC 2.96 10x6/uL (4.20-6.10); RDW 18.1 % (11.5-14.5)
[2017-10-09 05:49] LABS: WBC 4.3 10x3/uL (4.8-10.8)
[2017-10-09 05:55] LABS: CALC OSMOLALITY 264 mosm/kg (275-300); CALCIUM 8.5 mg/dL (8.5-10.1); CARBON DIOXIDE 25.8 mmol/L (21.0-32.0); CHLORIDE - SERUM 99 mmol/L (98-107); CREATININE - SERUM 0.6 mg/dL (0.6-1.3); GLUCOSE 96 mg/dL (74-106); POTASSIUM - SERUM 3.4 mmol/L (3.5-5.1); SODIUM 134 mmol/L (136-145); eGFR NON AFRICAN AMERICAN > 90 mL/min (90-120)
[2017-10-09 05:56] LABS: UREA NITROGEN 3 mg/dL (7-18)
[2017-10-09 08:00] VITALS: BP 145/77
[2017-10-09 11:58] VITALS: BP 137/77
[2017-10-09 15:41] VITALS: BP 143/81
[2017-10-10] VITALS: BP 140/75
[2017-10-10 05:56] LABS: BASOPHILS 0.7 % (0-2); EOSINOPHILS 4.6 % (0-7); HEMATOCRIT 27.7 % (42.0-54.0); HEMOGLOBIN 9.1 g/dL (13.5-17.5); LYMPHOCYTES 27.1 % (15-50); MCHC 32.9 g/dL (31.0-37.0); MCV 94.2 fL (80.0-100.0); MEAN PLATELET VOLUME 9.7 fL (7.4-10.4); MONOCYTES 17.5 % (2-11); NEUTROPHILS 50.1 % (40-80); PLATELET COUNT 202 10x3/uL (130-400); RBC 2.94 10x6/uL (4.20-6.10); RDW 17.8 % (11.5-14.5); WBC 4.2 10x3/uL (4.8-10.8)
[2017-10-10 06:04] LABS: INR 1.34 (0.85-1.17); PROTIME 16.1 SECONDS (11.6-15.0)
[2017-10-10 06:07] LABS: CALC OSMOLALITY 264 mosm/kg (275-300); CALCIUM 8.4 mg/dL (8.5-10.1); CARBON DIOXIDE 24.7 mmol/L (21.0-32.0); CHLORIDE - SERUM 100 mmol/L (98-107); CREATININE - SERUM 0.7 mg/dL (0.6-1.3); GLUCOSE 95 mg/dL (74-106); POTASSIUM - SERUM 3.2 mmol/L (3.5-5.1); SODIUM 134 mmol/L (136-145); eGFR NON AFRICAN AMERICAN > 90 mL/min (90-120)
[2017-10-10 06:24] LABS: UREA NITROGEN 5 mg/dL (7-18)
[2017-10-10 09:42] VITALS: BP 119/67
[2017-10-10 13:19] VITALS: BP 149/82
[2017-10-10 17:02] VITALS: BP 131/78
[2017-10-11] VITALS: BP 157/78
[2017-10-11 04:00] VITALS: BP 93/65
[2017-10-11 04:36] LABS: BASOPHILS 0.6 % (0-2); EOSINOPHILS 5.4 % (0-7); HEMATOCRIT 26.5 % (42.0-54.0); HEMOGLOBIN 8.9 g/dL (13.5-17.5); LYMPHOCYTES 24.9 % (15-50); MCH 31.4 pg (26.0-34.0); MCHC 33.6 g/dL (31.0-37.0); MCV 93.6 fL (80.0-100.0); MEAN PLATELET VOLUME 9.3 fL (7.4-10.4); MONOCYTES 20.1 % (2-11); PLATELET COUNT 205 10x3/uL (130-400); RBC 2.83 10x6/uL (4.20-6.10); RDW 17.4 % (11.5-14.5); WBC 3.3 10x3/uL (4.8-10.8)
[2017-10-11 04:44] LABS: INR 1.34 (0.85-1.17); PROTIME 16.1 SECONDS (11.6-15.0)
[2017-10-11 05:09] LABS: CALC OSMOLALITY 268 mosm/kg (275-300); CALCIUM 8.2 mg/dL (8.5-10.1); CARBON DIOXIDE 24.5 mmol/L (21.0-32.0); CHLORIDE - SERUM 101 mmol/L (98-107); CREATININE - SERUM 0.7 mg/dL (0.6-1.3); GLUCOSE 93 mg/dL (74-106); POTASSIUM - SERUM 3.1 mmol/L (3.5-5.1); SODIUM 136 mmol/L (136-145); UREA NITROGEN 5 mg/dL (7-18); eGFR NON AFRICAN AMERICAN > 90 mL/min (90-120)
[2017-10-11 08:38] VITALS: BP 128/79
[2017-10-11 12:28] VITALS: BP 152/80
[2017-10-11 16:20] VITALS: BP 130/60
[2017-10-12] VITALS: BP 129/67
[2017-10-12 05:20] LABS: HEMATOCRIT 26.4 % (42.0-54.0); HEMOGLOBIN 8.7 g/dL (13.5-17.5); MCH 31.2 pg (26.0-34.0); MCV 94.6 fL (80.0-100.0); MEAN PLATELET VOLUME 9.7 fL (7.4-10.4); PLATELET COUNT 222 10x3/uL (130-400); RBC 2.79 10x6/uL (4.20-6.10); RDW 17.7 % (11.5-14.5); WBC 3.4 10x3/uL (4.8-10.8)
[2017-10-12 05:46] LABS: INR 1.38 (0.85-1.17); PROTIME 16.5 SECONDS (11.6-15.0)
[2017-10-12 06:00] VITALS: BP 116/64
[2017-10-12 07:13] LABS: BASOPHILS 1 % (0-2); EOSINOPHILS 6 % (0-7); HYPOCHROMASIA OCC; LYMPHOCYTES 28 % (15-50); MONOCYTES 17 % (2-11); NEUTROPHILS 48 % (40-80); PLATELET ESTIMATE NORMAL; ROULEAUX OCC
[2017-10-12 08:42] VITALS: BP 132/77
[2017-10-12 11:49] VITALS: BP 126/69
[2017-10-12 15:51] VITALS: BP 126/74
[2017-10-12 20:00] VITALS: BP 128/72
[2017-10-13 04:00] VITALS: BP 117/68
[2017-10-13 05:51] LABS: BASOPHILS 0.5 % (0-2); HEMATOCRIT 26.3 % (42.0-54.0); HEMOGLOBIN 8.7 g/dL (13.5-17.5); LYMPHOCYTES 21.7 % (15-50); MCH 31.3 pg (26.0-34.0); MCHC 33.1 g/dL (31.0-37.0); MCV 94.6 fL (80.0-100.0); MEAN PLATELET VOLUME 9.5 fL (7.4-10.4); MONOCYTES 24.2 % (2-11); NEUTROPHILS 47.6 % (40-80); PLATELET COUNT 213 10x3/uL (130-400); RBC 2.78 10x6/uL (4.20-6.10); RDW 17.4 % (11.5-14.5); WBC 4.1 10x3/uL (4.8-10.8)
[2017-10-13 06:01] LABS: INR 1.47 (0.85-1.17); PROTIME 17.4 SECONDS (11.6-15.0)
[2017-10-13 08:41] VITALS: BP 136/69
[2017-10-13 11:55] VITALS: BP 132/73
[2017-10-13 16:04] VITALS: BP 128/75
[2017-10-13 20:00] VITALS: BP 109/63
[2017-10-14] VITALS: BP 109/63
[2017-10-14 04:00] VITALS: BP 136/81
[2017-10-14 04:42] LABS: BASOPHILS 0.7 % (0-2); EOSINOPHILS 5.3 % (0-7); HEMATOCRIT 28.1 % (42.0-54.0); HEMOGLOBIN 9.3 g/dL (13.5-17.5); IMMATURE GRANULOCYTES 0.2 % (0-5); LYMPHOCYTES 23.2 % (15-50); MCH 31.1 pg (26.0-34.0); MCHC 33.1 g/dL (31.0-37.0); MEAN PLATELET VOLUME 9.5 fL (7.4-10.4); MONOCYTES 23.9 % (2-11); NEUTROPHILS 46.7 % (40-80); RBC 2.99 10x6/uL (4.20-6.10); WBC 4.4 10x3/uL (4.8-10.8)
[2017-10-14 04:45] LABS: PLATELET COUNT 268 10x3/uL (130-400)
[2017-10-14 04:55] LABS: INR 1.48 (0.85-1.17); PROTIME 17.5 SECONDS (11.6-15.0)
[2017-10-14 08:21] VITALS: BP 117/69
[2017-10-14 12:36] VITALS: BP 146/81
[2017-10-14 16:23] VITALS: BP 124/65
[2017-10-14 23:37] VITALS: BP 136/76
[2017-10-15 04:00] VITALS: BP 121/71
[2017-10-15 04:30] LABS: BASOPHILS 0.9 % (0-2); EOSINOPHILS 5.3 % (0-7); HEMOGLOBIN 9.8 g/dL (13.5-17.5); LYMPHOCYTES 23.8 % (15-50); MCH 30.6 pg (26.0-34.0); MCHC 32.7 g/dL (31.0-37.0); MCV 93.8 fL (80.0-100.0); MEAN PLATELET VOLUME 9.8 fL (7.4-10.4); MONOCYTES 22.3 % (2-11); NEUTROPHILS 47.7 % (40-80); PLATELET COUNT 319 10x3/uL (130-400); RDW 17.3 % (11.5-14.5); WBC 4.5 10x3/uL (4.8-10.8)
[2017-10-15 04:34] LABS: INR 1.62 (0.85-1.17); PROTIME 18.7 SECONDS (11.6-15.0)
[2017-10-15 08:04] VITALS: BP 116/69
[2017-10-15 11:58] VITALS: BP 124/67
[2017-10-15] MEDS ORDERED: COUMADIN10 MG PO (14:49)
[2017-10-15] MEDS ORDERED: PREMARIN0.625 MG PO (14:50)
[2017-10-15 16:24] VITALS: BP 123/69
== END 2017-10-15 18:39 | disposition home or self-care (01) | DRG 378 ==
LOC: D.ER 13:36 → D.MS 19:30
PROVIDERS: Family Medicine; Internal Medicine Gastroenterology; Nurse Practitioner Family; Specialist
PROC: B4151ZZ Fluoroscopy of Inferior Mesenteric Artery using Low Osmolar Contrast (ICD-10-PCS; principal; 2017-10-10 08:30)
DX: K92.1 Melena (principal); D68.32 Hemorrhagic disorder due to extrinsic circulating anticoagulants; Z95.2 Presence of prosthetic heart valve; Z79.01 Long term (current) use of anticoagulants; I10 Essential (primary) hypertension; H40.9 Unspecified glaucoma; K42.9 Umbilical hernia without obstruction or gangrene; F41.9 Anxiety disorder, unspecified; D50.0 Iron deficiency anemia secondary to blood loss (chronic); K55.20 Angiodysplasia of colon without hemorrhage; D18.09 Hemangioma of other sites

== ENCOUNTER 2017-12-20 14:00 | Emergency (ER) | payer OTHER ==
[2017-10-07 12:48] VITALS: BMI 25.1
[~2017-12-20 14:00] MED LIST changes: +COUMADIN10 MG PO; +PREMARIN0.625 MG PO
== END 2017-12-20 18:30 | disposition home or self-care (01) ==
LOC: D.ER 14:00
DX: S51.811A Laceration without foreign body of right forearm, initial encounter (principal); W22.8XXA Striking against or struck by other objects, initial encounter; Y93.89 Activity, other specified; Y92.019 Unspecified place in single-family (private) house as the place of occurrence of the external cause; I10 Essential (primary) hypertension

== ENCOUNTER 2018-01-25 12:31 | Inpatient (IN) | payer OTHER ==
[~2018-01-25] VITALS: Ht 175.3 cm; Wt 74.4 kg
[2018-01-25 13:18] LABS: BASOPHILS 0.6 % (0-2); EOSINOPHILS 1.8 % (0-7); HEMOGLOBIN 8.3 g/dL (13.5-17.5); IMMATURE GRANULOCYTES 0.2 % (0-5); LYMPHOCYTES 18.5 % (15-50); MCH 29.5 pg (26.0-34.0); MCHC 31.9 g/dL (31.0-37.0); MCV 92.5 fL (80.0-100.0); MEAN PLATELET VOLUME 8.8 fL (7.4-10.4); MONOCYTES 12.6 % (2-11); NEUTROPHILS 66.3 % (40-80); PLATELET COUNT 368 10x3/uL (130-400); RBC 2.81 10x6/uL (4.20-6.10); WBC 5.1 10x3/uL (4.8-10.8)
[2018-01-25 13:24] LABS: ALBUMIN 4.3 g/dL (3.4-5.0); ALKALINE PHOSPHATASE 103 U/L (46-116); ALT (SGPT) 45 U/L (10-68); CALC OSMOLALITY 253 mosm/kg (275-300); CALCIUM 8.6 mg/dL (8.5-10.1); CARBON DIOXIDE 24.1 mmol/L (21.0-32.0); CHLORIDE - SERUM 92 mmol/L (98-107); CREATININE - SERUM 0.5 mg/dL (0.6-1.3); GLUCOSE 90 mg/dL (74-106); POTASSIUM - SERUM 4.2 mmol/L (3.5-5.1); PROTEIN - SERUM 8.3 g/dL (6.4-8.2); SODIUM 128 mmol/L (136-145); UREA NITROGEN 5 mg/dL (7-18); eGFR NON AFRICAN AMERICAN > 90 mL/min (90-120)
[2018-01-25 13:33] LABS: LIPASE 128 U/L (73-393); PRO BNP 106 pg/mL (0-125); TROPONIN-I < 0.017 ng/mL (0.000-0.060)
[2018-01-25 14:07] LABS: APTT 49.1 SECONDS (22.8-39.4); INR 2.66 (0.85-1.17); PROTIME 27.6 SECONDS (11.6-15.0)
[2018-01-25 17:35] VITALS: BP 140/79; BMI 24.4
[2018-01-25 20:00] VITALS: BP 141/86
[2018-01-25 21:11] LABS: BASOPHILS 0.8 % (0-2); EOSINOPHILS 3.5 % (0-7); HEMATOCRIT 29.7 % (42.0-54.0); HEMOGLOBIN 9.7 g/dL (13.5-17.5); IMMATURE GRANULOCYTES 0.3 % (0-5); LYMPHOCYTES 19.4 % (15-50); MCH 29.6 pg (26.0-34.0); MCHC 32.7 g/dL (31.0-37.0); MEAN PLATELET VOLUME 8.6 fL (7.4-10.4); MONOCYTES 19.9 % (2-11); NEUTROPHILS 56.1 % (40-80); RBC 3.28 10x6/uL (4.20-6.10); RDW 15.4 % (11.5-14.5)
[2018-01-25 21:34] LABS: MCV 90.5 fL (80.0-100.0); PLATELET COUNT 266 10x3/uL (130-400); WBC 3.8 10x3/uL (4.8-10.8)
[2018-01-25 22:54] LABS: APPEARANCE CLEAR (CLEAR); BILIRUBIN NEGATIVE (NEGATIVE); COLOR YELLOW (YELLOW); GLUCOSE NEGATIVE (NEGATIVE); KETONE NEGATIVE (NEGATIVE); NITRITE NEGATIVE (NEGATIVE); PROTEIN NEGATIVE (NEGATIVE); SPECIFIC GRAVITY 1.005 (1.005-1.020); UROBILINOGEN NORMAL (NORMAL)
[2018-01-26 05:10] LABS: BASOPHILS 0.3 % (0-2); EOSINOPHILS 4.3 % (0-7); HEMATOCRIT 29.4 % (42.0-54.0); HEMOGLOBIN 9.6 g/dL (13.5-17.5); LYMPHOCYTES 18.8 % (15-50); MCH 29.4 pg (26.0-34.0); MCHC 32.7 g/dL (31.0-37.0); MCV 89.9 fL (80.0-100.0); MEAN PLATELET VOLUME 9.3 fL (7.4-10.4); MONOCYTES 19.1 % (2-11); NEUTROPHILS 57.5 % (40-80); PLATELET COUNT 305 10x3/uL (130-400); RBC 3.27 10x6/uL (4.20-6.10); RDW 15.5 % (11.5-14.5); WBC 3.7 10x3/uL (4.8-10.8)
[2018-01-26 05:16] LABS: INR 2.25 (0.85-1.17); PROTIME 24.2 SECONDS (11.6-15.0)
[2018-01-26 05:21] LABS: CALC OSMOLALITY 261 mosm/kg (275-300); CALCIUM 8.1 mg/dL (8.5-10.1); CARBON DIOXIDE 26.7 mmol/L (21.0-32.0); CHLORIDE - SERUM 98 mmol/L (98-107); CREATININE - SERUM 0.6 mg/dL (0.6-1.3); GLUCOSE 86 mg/dL (74-106); POTASSIUM - SERUM 3.7 mmol/L (3.5-5.1); SODIUM 133 mmol/L (136-145); UREA NITROGEN 4 mg/dL (7-18); eGFR NON AFRICAN AMERICAN > 90 mL/min (90-120)
[2018-01-26 05:54] VITALS: BP 105/65
[2018-01-26 08:18] VITALS: BP 134/71
[2018-01-26 11:09] VITALS: BP 139/77
[2018-01-26 12:56] LABS: BASOPHILS 0.4 % (0-2); EOSINOPHILS 2.5 % (0-7); HEMATOCRIT 31.9 % (42.0-54.0); HEMOGLOBIN 10.2 g/dL (13.5-17.5); LYMPHOCYTES 12.1 % (15-50); MCH 29.3 pg (26.0-34.0); MCV 91.7 fL (80.0-100.0); MEAN PLATELET VOLUME 9.2 fL (7.4-10.4); MONOCYTES 12.6 % (2-11); NEUTROPHILS 72.4 % (40-80); PLATELET COUNT 284 10x3/uL (130-400); RBC 3.48 10x6/uL (4.20-6.10); RDW 15.7 % (11.5-14.5)
[2018-01-26 13:02] VITALS: Ht 175.3 cm; Wt 74.4 kg
[2018-01-26 13:07] LABS: WBC 5.1 10x3/uL (4.8-10.8)
[2018-01-26] MEDS ORDERED: COUMADIN5 MG PO (13:46)
[2018-01-26 16:03] VITALS: BP 152/76
== END 2018-01-26 15:30 | disposition home or self-care (01) | DRG 812 ==
LOC: D.ER 12:31 → D.EDHOLD 15:41 → D.M2 15:41
PROVIDERS: Family Medicine
DX: D50.0 Iron deficiency anemia secondary to blood loss (chronic) (principal); K92.1 Melena; Z95.2 Presence of prosthetic heart valve; I10 Essential (primary) hypertension; M10.9 Gout, unspecified; E78.5 Hyperlipidemia, unspecified; K21.9 Gastro-esophageal reflux disease without esophagitis; Z87.891 Personal history of nicotine dependence; Z72.89 Other problems related to lifestyle